=== PATIENT | female | born 1965 | race Caucasian/White ===

== ENCOUNTER 2019-03-13 10:58 | Outpatient (CLI) | payer OTHER, SELFPAY ==
[2019-03-13 13:00] LABS: Ferritin 61 ng/mL (8-388)
== END 2019-03-13 11:18 ==
PROVIDERS: PCP Nurse Practitioner Family; Visit Provider Nurse Practitioner
DX: M25.50 Pain in unspecified joint (principal)
CPT/HCPCS: 36415; 82728